=== PATIENT | female | born 1995 | race African-American/Black ===

== ENCOUNTER 2017-10-17 01:27 | Emergency (ER) | payer MEDICAID ==
[~2017-10-17] VITALS: Ht 162.6 cm; Wt 46.3 kg
== END 2017-10-17 03:00 | disposition left against medical advice (07) ==
LOC: ER 01:27
DX: Z53.21 Procedure and treatment not carried out due to patient leaving prior to being seen by health care provider (principal)

== ENCOUNTER 2022-06-28 20:30 | Emergency (ER) | payer MEDICAID ==
[~2022-06-28] VITALS: Ht 170.2 cm; Wt 54.0 kg
[2022-06-28 20:44] VITALS: BP 151/101
== END 2022-06-28 21:20 | disposition left against medical advice (07) ==
LOC: ER 20:30
DX: Z53.21 Procedure and treatment not carried out due to patient leaving prior to being seen by health care provider (principal)